=== PATIENT | male | born 1975 | race African-American/Black ===

== ENCOUNTER 2017-07-06 09:58 | Emergency (ER) | payer SELFPAY ==
[~2017-07-06] VITALS: Ht 152.4 cm; Wt 52.0 kg
[~2017-07-06 09:58] MED LIST: PRED20 PO; TRIA.1%T TOPICAL
[2017-07-06 10:05] VITALS: BP 124/70; PULSE 88; RESP 15; TEMP 98.5; O2SAT 99
[2017-07-06] MEDS ORDERED: TRIAM.1%T TOPICAL (10:34)
--- NOTE | 2017-07-06 10:35 | PD ---
HPI Chief Complaint: Skin Problem Time Seen by Provider: 10:20 Travel History International Travel<30 days: No Contact w/Intl Traveler<30days: No Traveled to known affect area: No History of Present Illness HPI 41yo M with no PMH presents to the ED with c/o rash in his bilateral arms for 4- 5 months. Denies any fever, chest pain, sob, lip or tongue swelling, n/v, abdominal pain, focal weakness or numbness, pain in the rash. Denies recent exposure to new medications, lotions, shampoos, plants. Pt states he was seen here for his before and was given a cream that helped but the rash came back. Pt was seen 09/2016 and discharged with triamcinolone cream. [facility] Social History Alcohol Use: Yes Tobacco Use: Yes (2-3 cig/day) Substance Use: Yes (marijuana, no IV drug use) Allergies-Medications (Allergen,Severity, Reaction): Coded Allergies: No Known Allergies (Unverified , 09/20/16) Reported Meds & Prescriptions Reported Meds & Active Scripts Active Triamcinolone Topical (Triamcinolone Acetonide) 0.1% Cream 1 Applic TOPICAL BID Prednisone 20 Mg Tab 40 Mg PO DAILY 4 Days Review of Systems Except as stated in HPI: all other systems reviewed are Neg Physical Exam Narrative GENERAL: 41yo M not in distress. SKIN: Bilateral skin color papules in clusters in bilateral forearms with some excoriation from scratching. No erythema, edema. There are some similar rash in the neck as well. HEAD: Atraumatic. Normocephalic. EYES: Pupils equal and round. No scleral icterus. No injection or drainage. ENT: No lip or tongue swelling. NECK: Trachea midline. No JVD. CARDIOVASCULAR: Regular rate and rhythm. No murmur appreciated. RESPIRATORY: No accessory muscle use. Clear to auscultation. Breath sounds equal bilaterally. GASTROINTESTINAL: Abdomen soft, non-tender, nondistended. MUSCULOSKELETAL: No obvious deformities. No clubbing. No cyanosis. No edema. NEUROLOGICAL: Awake and alert. No obvious cranial nerve deficits. Motor grossly within normal limits. Normal speech. PSYCHIATRIC: Appropriate mood and affect; insight and judgment normal. Data Data Last Documented VS Vital Signs Date Time Temp Pulse Resp B/P Pulse Ox O2 Delivery O2 Flow Rate FiO2 07/06/17 10:05 98.5 88 15 124/70 99 MDM Medical Decision Making Medical Screen Exam Complete: Yes Emergency Medical Condition: Yes Differential Diagnosis Eczema vs. contact dermatitis vs. psoriasis Narrative Course 41yo M with rash in bilateral arms and neck that is itchy for a few months. Similar episode last year. No systemic symptoms. Appears to be like eczema to me. Return precautions given. Diagnosis Primary Impression: Eczema Qualified Code: L30.9 - Eczema, unspecified type Patient Instructions: General Instructions Departure Forms: Tests/Procedures Additional Instructions: Please follow up with your primary care physician in 1 week. Return to the ED if symptoms worsen. Med/Other Pt SpecificInfo: Prescription(s) given Scripts Triamcinolone Topical 0.1 % Oint1 Applic TOPICAL BID 10 Days Ref 0 Prov:Charu Winchester DO 07/06/17 Disposition: 01 DISCHARGE HOME Condition: Stable Charu Winchester DO Jul 06, 2017 10:34
== END 2017-07-06 10:41 | disposition home or self-care (01) ==
LOC: NEPE 09:58
DX: L30.9 Dermatitis, unspecified (principal); Z72.0 Tobacco use
CPT/HCPCS: 99283

== ENCOUNTER 2017-08-17 07:53 | Emergency (ER) | payer SELFPAY ==
[~2017-08-17] VITALS: Ht 152.4 cm; Wt 50.0 kg
[~2017-08-17 07:53] MED LIST changes: +TRIAM.1%T TOPICAL
[2017-08-17 07:56] VITALS: BP 111/75; PULSE 72; RESP 14; TEMP 97.8; O2SAT 98
[2017-08-17] MEDS ORDERED: TRIA.1%T TOPICAL (08:17)
--- NOTE | 2017-08-17 08:17 | PD ---
HPI Chief Complaint: Skin Problem Time Seen by Provider: 08:07 Travel History International Travel<30 days: No Contact w/Intl Traveler<30days: No Traveled to known affect area: No History of Present Illness HPI 41-year-old male here for evaluation of flareup of eczema/dermatitis. He states that for the last 5-6 months he has had this on his bilateral upper extremities. He has been on triamcinolone in the past which improved his symptoms. He no longer has this medication. He denies fevers or chills. He states that the rash is pruritic. [facility] Social History Alcohol Use: Yes Tobacco Use: Yes (2-3 cig/day) Substance Use: Yes (marijuana, no IV drug use) Allergies-Medications (Allergen,Severity, Reaction): Coded Allergies: No Known Allergies (Unverified , 09/20/16) Reported Meds & Prescriptions Reported Meds & Active Scripts Active Triamcinolone Topical (Triamcinolone Acetonide) 0.1 % Oint 1 Applic TOPICAL BID 10 Days Triamcinolone Topical (Triamcinolone Acetonide) 0.1% Cream 1 Applic TOPICAL BID Prednisone 20 Mg Tab 40 Mg PO DAILY 4 Days Review of Systems Except as stated in HPI: all other systems reviewed are Neg Physical Exam Narrative GENERAL: Well-developed, well-nourished, awake, alert, no apparent distress. SKIN: Focused skin assessment warm/dry. Bilateral upper extremities with patchy /raised areas of scaly/dry skin. No warmth or erythema. No purulence. No fluctuance or induration. HEAD: Atraumatic. Normocephalic. EYES: Pupils equal and round. No scleral icterus. No injection or drainage. ENT: No nasal bleeding or discharge. No intraoral lesions. NECK: Trachea midline. No JVD. CARDIOVASCULAR: Regular rate and rhythm. Bilateral distal radial pulses are brisk and equal. RESPIRATORY: No accessory muscle use. NEUROLOGICAL: Awake and alert. No obvious cranial nerve deficits. Motor grossly within normal limits. Normal speech. PSYCHIATRIC: Appropriate mood and affect; insight and judgment normal. Data Data Last Documented VS Vital Signs Date Time Temp Pulse Resp B/P (MAP) Pulse Ox O2 Delivery O2 Flow Rate FiO2 08/17/17 07:56 97.8 72 14 111/75 (87) 98 MDM Medical Decision Making Medical Screen Exam Complete: Yes Emergency Medical Condition: Yes Differential Diagnosis Eczema, dermatitis Narrative Course Vital signs are within normal limits. This is a 41-year-old male with eczema/dermatitis to his bilateral upper extremity. Triamcinolone cream has improved his symptoms in the past. I will give him another prescription for this. He was advised to follow-up with a education officer. He was informed on when to return to the emergency department. He verbalizes understanding and agreement with plan. Diagnosis Primary Impression: Dermatitis Referrals: [facility] 3 days Additional Instructions: Follow-up with a primary care physician this week. Follow-up with a education officer this week. Return to the emergency department for worsening symptoms or any other concerns. Scripts Triamcinolone Topical (Triamcinolone Topical) 0.1% Cream 1 APPLIC TOPICAL ONCE for Inflammation, #1 TUBE 2 Refills Prov: Geovanny Moss MD 08/17/17 Disposition: 01 DISCHARGE HOME Condition: Stable Geovanny Moss MD Aug 17, 2017 08:17
== END 2017-08-17 08:47 | disposition home or self-care (01) ==
LOC: NEPE 07:53
DX: L30.9 Dermatitis, unspecified (principal); F17.210 Nicotine dependence, cigarettes, uncomplicated
CPT/HCPCS: 99283

== ENCOUNTER 2018-08-12 13:26 | Inpatient (IN) ==
[2018-08-12] MEDS ORDERED: Sod Chloride 0.9% Inj 1,000 ML IV.SIG SCH (16:00)
[2018-08-12 16:14] LABS: Baso % (Auto) 0.5 % (0.0-2.0); Eos % (Auto) 0.7 % (0.0-4.0); Hematocrit 23.3 % (39.0-51.0); Hemoglobin 7.9 gm/dL (13.0-17.0); Lymph % (Auto) 61.3 % (9.0-44.0); Mean Corpuscular HGB Conc 33.9 % (32.0-36.0); Mean Corpuscular Hemoglobin 41.7 pg (27.0-34.0); Mean Corpuscular Volume 123.1 fL (80.0-100.0); Mean Platelet Volume 9.7 fL (7.0-11.0); Mono % (Auto) 1.4 % (0.0-8.0); Neut # (Auto) 1.2 th/mm3 (1.8-7.7); Neut % (Auto) 36.1 % (16.0-70.0); Platelet Count 99 th/mm3 (150-450); Red Blood Count 1.89 mil/mm3 (4.50-5.90); Red Cell Distribution Width 19.5 % (11.6-17.2); White Blood Count 3.3 th/mm3 (4.0-11.0)
[2018-08-12 16:39] LABS: Anion Gap 11 meq/L (5-15); Blood Urea Nitrogen 22 mg/dL (7-18); Calcium 8.1 mg/dL (8.5-10.1); Carbon Dioxide 18.7 meq/L (21.0-32.0); Chloride 111 meq/L (98-107); Glomerular Filtration Rate Greater Than 89 mL/min (>89); Glucose,Random 74 mg/dL (74-106); Sodium 141 meq/L (136-145)
[2018-08-12 16:46] LABS: Potassium 3.9 meq/L (3.5-5.1)
[2018-08-12 17:23] LABS: Acanthocytes 1+
[2018-08-12 17:24] LABS: Platelet Morphology Normal (Normal)
--- NOTE | 2018-08-12 17:33 | ED ---
HPI General Chief complaint: Medical Clearance Stated complaint: Medical Time Seen by Provider: 08/12/18 14:56 Source: patient Mode of arrival: ambulatory Limitations: no limitations History of Present Illness HPI narrative: 42-year-old male presents to the emergency department with complaint of generalized weakness and feeling tired since yesterday. He is concerned that his blood counts are low due to iron deficiency anemia. He has history of blood transfusion secondary to his anemia. He says he works outside doing [employer] and he feels dehydrated, although he has been drinking Gatorade. He denies fevers, vomiting, nausea, diarrhea, abdominal pain. Denies chest pain, shortness of breath, abdominal pain, dizziness, lightheadedness. Denies any pain. Denies black or tarry stools. Symptoms are mild in severity. Has been drinking Gatorade for symptom management. History of iron deficiency anemia. No known allergies. No primary care provider. Has no other medical complaints. No other modifying factors or associated signs and symptoms. Related Data Previous Rx's Medication Instructions Recorded omeprazole 40 mg PO DAILY #30 cap 07/26/18 Allergies Allergy/AdvReac Type Severity Reaction Status Date / Time No Known Allergies Allergy Uncoded 09/20/16 10:21 Review of Systems ROS: all other systems reviewed are negative [facility] Medical History Medical History Anemia (Acute) Anemia (Acute) Patient denies medical problems (Acute) Social History Social History Substance History: Active Abuse Second Hand Smoke Exposure: Yes Smoking Status: Current every day smoker Tobacco Type: Cigarettes How Often Do You Have a Drink Containing Alcohol: Monthly or less Recent Travel in [facility] within the Last 8 Weeks: No Recent Out of Country Travel within the Last 8 Weeks: No Substance Abuse Detail Marijuana: Substance Use Status: Active Immunization History Tetanus Immunization: Unsure Hx Influenza Vaccine This Season: No Exam Narrative Exam Narrative: GENERAL: Well-nourished, well-developed thin, black male patient , in no acute distress SKIN: Warm and dry. HEAD: Atraumatic. Normocephalic. EYES: Pupils equal and round. No scleral icterus. No injection or drainage. ENT: Mucosa pink and moist. Airway patent. NECK: Trachea midline. CARDIOVASCULAR: Regular rate and rhythm. No murmur appreciated. RESPIRATORY: No accessory muscle use. Breath sounds clear and equal bilaterally. No retractions or tachypnea. GASTROINTESTINAL: Abdomen soft, non-tender, nondistended. Positive bowel sounds. No hepato-splenomegaly, or palpable masses. No guarding. RECTAL EXAM: Exam done in the presence of a nurse. No masses or tenderness, stool is brown with bright red specks of blood noted. Hemaprompt positive. No visualized external hemorrhoids. MUSCULOSKELETAL: No obvious deformities. No clubbing. No cyanosis. No edema. NEUROLOGICAL: Awake and alert. Oriented 3. No obvious cranial nerve deficits. Motor grossly within normal limits. Normal speech. PSYCHIATRIC: Appropriate mood and affect; insight and judgment normal. Course Initial Documented Vital Signs Temperature 97.7 F 08/12/18 13:27 Pulse Rate 77 08/12/18 13:27 Respiratory Rate 16 08/12/18 13:27 Blood Pressure 97/58 L 08/12/18 13:27 Pulse Oximetry 100 08/12/18 13:27 Last Documented Vital Signs Temperature 97.7 F 08/12/18 13:27 Pulse Rate 68 08/12/18 13:36 Respiratory Rate 17 08/12/18 13:36 Blood Pressure 123/52 L 08/12/18 13:36 Pulse Oximetry 100 08/12/18 13:36 Medical Decision Making MDM Narrative Medical decision making narrative: hemoglobin on July-year-old male with history of anemia complaining of weakness and fatigue. He has history of iron deficiency anemia and blood transfusion and he is concerned his blood count has dropped. He has no other medical complaints. Physical exam is unremarkable. Vital signs are stable. I will check basic labs to evaluate his hemoglobin. CBC, BMP, IV, IV fluid bolus ordered. 1736: Hemoglobin 7.9. Platelet count 99. BUN 22. Otherwise BMP unremarkable. I reviewed his medical record and his hemoglobin on July 26 was 10.7; platelet count was 147. His BUN was 22 and is consistent with current level. Patient denies any black or tarry stools. Denies any hematuria. Says these had anemia all of his life. He is on no current supplementation. Hemaprompt positive. Patient will be admitted for symptomatic anemia and GI bleed. Call placed for patient admission. 1825: I spoke with Dr. lacierda, [facility], and report given for patient admission. Medical Screen Exam Complete: Yes Emergency Medical Condition: Yes Differential Diagnosis Differential Diagnosis: Dehydration, fatigue, anemia, electrolyte imbalance Lab Data Result diagrams: 08/12/18 16:05 08/12/18 16:05 Lab Results 08/12/18 08/12/18 Range/Units 16:05 16:05 WBC 3.3 L (4.0-11.0) th/mm3 RBC 1.89 L (4.50-5.90) mil/mm3 Hgb 7.9 L (13.0-17.0) gm/dL Hct 23.3 L (39.0-51.0) % MCV 123.1 H (80.0-100.0) fL MCH 41.7 H (27.0-34.0) pg MCHC 33.9 (32.0-36.0) % RDW 19.5 H (11.6-17.2) % Plt Count 99 L D (150-450) th/mm3 MPV 9.7 (7.0-11.0) fL Prelim Diff (Auto) Slide review pending Neut % (Auto) 36.1 (16.0-70.0) % Lymph % (Auto) 61.3 H (9.0-44.0) % [place] % (Auto) 1.4 (0.0-8.0) % Eos % (Auto) 0.7 (0.0-4.0) % Baso % (Auto) 0.5 (0.0-2.0) % Neut # (Auto) 1.2 L (1.8-7.7) th/mm3 Lymph # (Auto) 2.0 (1.0-4.8) th/mm3 [place] # (Auto) 0.0 (0.0-0.9) th/mm3 Eos # (Auto) 0.0 (0.0-0.4) th/mm3 Baso # (Auto) 0.0 (0.0-0.2) th/mm3 WBC Differential . Diff Scan Auto diff confirmed Differential Comment . Platelet Estimate Low L (Normal) Platelet Morphology Normal (Normal) Acanthocytes (Spur) 1+ H (None) Sodium 141 (136-145) meq/L Potassium 3.9 (3.5-5.1) meq/L Chloride 111 H (98-107) meq/L Carbon Dioxide 18.7 L (21.0-32.0) meq/L Anion Gap 11 (5-15) meq/L BUN 22 H (7-18) mg/dL Creatinine 0.96 (0.60-1.30) mg/dL Estimated GFR Greater than 89 (>89) mL/min Random Glucose 74 (74-106) mg/dL Calcium 8.1 L (8.5-10.1) mg/dL Discharge Plan Discharge Disposition Patient Disposition: 30 Still Patient Discharge Condition Condition: Stable Discharge Details Diagnosis: Symptomatic anemia, GI bleed Physicians Team ED Provider: Mat Dennison ED Midlevel Provider: Ashley Lind Primary Care Provider: Primary Care Ruth Cavanaugh Rxs /Orders / Referrals /Forms Prescriptions: No Action omeprazole 40 mg capsule,delayed release(DR/EC) 40 mg PO DAILY Qty: 30 RF: 0 Status ED Status: With Doctor
[2018-08-12 19:25] LABS: INR 1.2 Ratio; Prothrombin Time 11.9 sec (9.8-11.6)
--- NOTE | 2018-08-12 21:09 | P.HPIM ---
History of Present Illness Service: [facility] Primary Care Physician: No Primary Care Physician Chief Complaint: Weakness History of Present Illness: 42-year-old male with a history of anemia since childhood, as a child was on B12 injections, currently on no medication presented in the ED with complaints of generalized weakness since yesterday. Patient states he does work out in the hot sun and despite drinking Gatorade he just has been feeling very weak. He does have a history of blood transfusions in the past and states he does not take any iron pills and lately has not been very compliant with his diet or taking care of himself. He does states that he has noticed some bright red blood in with his stools and on tissue when having a bowel movement, that has been going on for at least a month. No history of endoscopy or colonoscopy. Upon admission patient was found to have a hemoglobin of 7.9, patient was seen on 07/26 and hemoglobin at that time was 10.7, and May 2018 hemoglobin was 13.9. Patient also does not have any primary care provider due to insurance issues. He denies any associated chest pain, shortness of breath, fever, chills, abdominal pain, dysuria or hematuria. Inpatient Certification: I certify that the inpatient services were ordered in accordance with Medicare regulations governing the order. This includes certification that hospital inpatient services are reasonable and necessary and in the case of services not specified as inpatient-only under 42 CFR 419.22(n), that they are appropriately provided as inpatient services in accordance to with the 2-midnight benchmark under 43 CFR 412.3(e) Review of Systems All other systems reviewed negative except as stated in [facility] - History History Provided By: Patient - Medical History Medical History: Medical History (Last Reviewed 08/13/18 @ 00:10 by TEGAN Figueroa) Anemia Anemia Patient denies medical problems - Surgical History Surgical History: Surgical History (Last Reviewed 08/13/18 @ 00:10 by TEGAN Figueroa) History of major abdominal surgery - Family History Family History: Family History (Last Reviewed 08/13/18 @ 00:10 by TEGAN Figueroa) Other Unknown family medical history - Social History I have reviewed the patient's Social History: Yes - Tobacco History Second Hand Smoke Exposure: Yes Tobacco Use In Past 30 Days: Yes Smoking Status: Current every day smoker Tobacco Type: Cigarettes - Alcohol History How Often Do You Have a Drink Containing Alcohol: Monthly or less - Substance Use History Substance History: Active Abuse - Substance Use Type Marijuana Status: Active - Travel History Recent Travel in the [place] Within the Last 8 Weeks: No Recent Travel Out of the Country Within the Last 8 Weeks: No - Immunization History Tetanus Immunization: Unsure Hx Influenza Vaccine This Season: No Medications and Allergies Active Medications: Active Medications Sodium Chloride (Ns Inj) 1,000 mls @ 0 mls/hr IV.SIG BOLUS CARINA Sodium Chloride (Ns Inj) 250 mls @ 15 mls/hr IV.SIG ONCE CARINA Stop: 08/13/18 14:39 Allergies Allergy/AdvReac Type Severity Reaction Status Date / Time No Known Allergies Allergy Uncoded 09/20/16 10:21 Exam Vital signs: Vital Signs 08/12/18 13:27 08/12/18 13:36 08/12/18 19:28 Temperature 97.7 F Pulse Rate 77 68 62 Respiratory Rate 16 17 15 Blood Pressure 97/58 L 123/52 L 92/61 L Pulse Oximetry 100 100 98 Intake & Output 08/12/18 08/12/18 08/13/18 06:59 18:59 06:59 Weight 53.524 kg Narrative: GENERAL: This is a thin patient, in no apparent distress. SKIN: Warm, dry, intact, no ecchymosis or open lesions EYES: Pupils equal round and reactive, no scleral edema or drainage CARDIOVASCULAR: Regular rate and rhythm without murmurs, gallops, or rubs. RESPIRATORY: Clear to auscultation. Breath sounds equal bilaterally. No wheezes , rales, or rhonchi. GASTROINTESTINAL: Abdomen soft, non-tender, nondistended. Normal active bowel sounds MUSCULOSKELETAL: Extremities without clubbing, cyanosis, or edema. NEURO: Alert & Oriented x4 to person, place, time, situation. Moves all ext x4 Results - Labs CBC & Chem 7: 08/12/18 16:05 08/12/18 16:05 Labs: Short CBC 08/12/18 Range/Units 16:05 WBC 3.3 L (4.0-11.0) th/mm3 Hgb 7.9 L (13.0-17.0) gm/dL Hct 23.3 L (39.0-51.0) % Plt Count 99 L D (150-450) th/mm3 BMP 08/12/18 16:05 Sodium 141 Potassium 3.9 Chloride 111 H Carbon Dioxide 18.7 L BUN 22 H Creatinine 0.96 Calcium 8.1 L Caprini VTE Risk Assessment Caprini VTE Risk Assessment: No/Low Risk (score <= 1) Caprini Risk Assessment Model: Point Value = 1 Point Value = 2 Point Value = 3 Point Value = 5 Age 41-60 Minor surgery BMI > 25 kg/m2 Swollen legs Varicose veins or History of unexplained or recurrent spontaneous Oral contraceptives or hormone replacement Sepsis (< 1 month) Serious lung disease, including pneumonia (< 1 month) Abnormal pulmonary function Acute myocardial infarction Congestive heart failure (< 1 month) History of inflammatory bowel disease Medical patient at bed rest Age 61-74 Arthroscopic surgery Major open surgery (> 45 min) Laparoscopic surgery (> 45 min) Malignancy Confined to bed (> 72 hours) Immobilizing plaster cast Central venous access Age >= 75 History of VTE Family history of VTE Factor V Leiden Prothrombin [id number] Lupus anticoagulant Anticardiolipin antibodies Elevated serum homocysteine Heparin-induced thrombocytopenia Other congenital or acquired thrombophilia Stroke (< 1 month) Elective arthroplasty Hip, pelvis, or leg fracture Acute spinal cord injury (< 1 month) Prophylaxis Regimen: Total Risk Factor Score Risk Level Prophylaxis Regimen 0-1 Low Early ambulation 2 Moderate Order ONE of the following: *Sequential Compression Device (SCD) *Heparin 5000 units SQ BID 3-4 Higher Order ONE of the following medications: *Heparin 5000 units SQ TID *Enoxaparin/Lovenox 40 mg SQ daily (WT < 150 kg, CrCl > 30 mL/min) *Enoxaparin/Lovenox 30 mg SQ daily (WT < 150 kg, CrCl > 10-29 mL/min) *Enoxaparin/Lovenox 30 mg SQ BID (WT < 150 kg, CrCl > 30 mL/min) AND/OR *Sequential Compression Device (SCD) 5 or more Highest Order ONE of the following medications: *Heparin 5000 units SQ TID (Preferred with Epidurals) *Enoxaparin/Lovenox 40 mg SQ daily (WT < 150 kg, CrCl > 30 mL/min) *Enoxaparin/Lovenox 30 mg SQ daily (WT < 150 kg, CrCl > 10-29 mL/min) *Enoxaparin/Lovenox 30 mg SQ BID (WT < 150 kg, CrCl > 30 mL/min) AND *Sequential Compression Device (SCD) Assessment and Plan - Plan 42-year-old male with a history of anemia presented in the ED with complaints of generalized weakness since yesterday. Symptomatic anemia, related to possible GI bleed Hemoglobin today 7.9, on 07/26/18 10.7, and on 05/25 13.9 Hemoccult positive in the ED -Consult gastroenterology for evaluation -N.p.o. -Protonix IV -Transfuse 1 unit PRBCs -Serial H&H pancytopenia, wbc 3.3, platelets 99, with macrocytic anemia -Iron panel ordered, shows elevated iron, low TIBC, normal ferritin -checked B12, folate, Retic count, B12 < 60, folate>20 -Start B12 1000mg PO daily -blood smear pending -Consult hematology for evaluation -Check liver studies DVT prophylaxis: SCDs Discussed Condition With: Patient and RN
[2018-08-12] MEDS ORDERED: Sodium Chlor 0.9% Inj 250 ML IV.SIG SCH (22:00)
[2018-08-12 23:17] VITALS: O2SAT 100
[2018-08-12] MEDS ORDERED: Acetaminophen 325 MG Tablet PO PRN (23:56)
[2018-08-13] MEDS ORDERED: Pantoprazole Inj 40 MG Vial IV.PUSH SCH
[2018-08-13] MEDS: Sod Chloride 0.9% Inj 1,000 ML IV.CONT SCH ×3 (00:06→10:25)
[2018-08-13] MEDS ORDERED: Sodium Chloride 0.9% 2 ML Flush PRN IV.FLUSH (00:06)
[2018-08-13 00:49] LABS: Reticulocyte Percent 0.7 % (0.4-3.0)
[2018-08-13 06:46] LABS: Baso % (Auto) 0.5 % (0.0-2.0); Eos % (Auto) 1.3 % (0.0-4.0); Hematocrit 30.1 % (39.0-51.0); Hemoglobin 10.3 gm/dL (13.0-17.0); Lymph # (Auto) 2.2 th/mm3 (1.0-4.8); Lymph % (Auto) 70.5 % (9.0-44.0); Mean Corpuscular HGB Conc 34.1 % (32.0-36.0); Mean Corpuscular Hemoglobin 39.2 pg (27.0-34.0); Mean Corpuscular Volume 115.1 fL (80.0-100.0); Mean Platelet Volume 8.3 fL (7.0-11.0); Mono % (Auto) 1.5 % (0.0-8.0); Neut # (Auto) 0.8 th/mm3 (1.8-7.7); Neut % (Auto) 26.2 % (16.0-70.0); Platelet Count 63 th/mm3 (150-450); Red Blood Count 2.61 mil/mm3 (4.50-5.90); White Blood Count 3.1 th/mm3 (4.0-11.0)
[2018-08-13 06:56] LABS: Anion Gap 11 meq/L (5-15); Blood Urea Nitrogen 17 mg/dL (7-18); Calcium 8.1 mg/dL (8.5-10.1); Carbon Dioxide 18.8 meq/L (21.0-32.0); Chloride 111 meq/L (98-107); Glomerular Filtration Rate Greater Than 89 mL/min (>89); Glucose,Random 65 mg/dL (74-106); Potassium 3.5 meq/L (3.5-5.1); Sodium 141 meq/L (136-145)
[2018-08-13 08:13] LABS: Eosinophils 1 % (0-4); Lymphocytes 74 % (9-44); Monocytes 2 % (0-8)
[2018-08-13 08:14] LABS: Platelet Morphology Normal (Normal)
[2018-08-13 08:56] VITALS: RESP 16
[2018-08-13] MEDS ORDERED: Sodium Chloride 0.9% 2 ML Flush BID IV.FLUSH SCH (09:00)
[2018-08-13] MEDS ORDERED: Ferrous Sulfate 325 MG Tablet PO SCH (09:00)
--- NOTE | 2018-08-13 09:45 | MB ---
cc: Rusty Lubin MD DATE: 08/13/2018 CONSULTING PHYSICIAN: Dr. Holbrook. REASON FOR CONSULTATION: Hematology concern. The patient with pancytopenia. HISTORY OF PRESENT ILLNESS: The patient is a 42-year-old male admitted to the hospital with complaint of increased weakness. He stated he was working in the hot sun and had been having increased weakness on all day yesterday. He said he had been trying to drink Gatorade without any improvement. He presented to the emergency room and found to have hemoglobin of 7.9. He also was found to have a pancytopenia with a platelet of 99,000 and white blood cell count 3.3 and mild neutropenia. He denies any fever or chills. He denies any recent weight loss. He said he has not been eating well lately. He had a bowel resection when he was a baby. He said he was getting B12 injection when he was a kid, but he has not had followup for many years. He also has a history of iron deficiency anemia. He had transfusion 5-6 times in the past. The last time was around 2011. He denies any chest pain, dyspnea on exertion. He has no nausea or vomiting. He denies abdominal pain. He noted some blood in the tissue for the last 1 month. He denies any dysuria or hematuria. He stated he is supposed to meet a cab driver this coming Saturday morning and he is supposed to be incarcerated for 60-90 days. He states that he has to be out of the hospital to meet with the cab driver on Saturday. PAST MEDICAL HISTORY: 1. Chronic anemia since childhood. 2. Report of iron deficiency in the past. 3. Report of B12 deficiency. PAST SURGICAL HISTORY: Abdominal surgery when he was a baby. Reportedly, part of his bowel was resected. FAMILY HISTORY: His 5 siblings, all relatively healthy. No blood disorder in the family that he knows of. SOCIAL HISTORY: Smoked 3 cigarettes since age 19. He also smoked occasional marijuana. He drinks occasionally. He is now working as a housekeeper. ALLERGIES: NO KNOWN DRUG ALLERGIES. MEDICATIONS: B12, Protonix. REVIEW OF SYSTEMS: CONSTITUTIONAL: As above. EYES: Negative. ENT: Negative. CARDIOVASCULAR: No chest pressure or palpitation. RESPIRATORY: As above. GASTROINTESTINAL: As above. GENITOURINARY: Negative. MUSCULOSKELETAL: Negative. HEMATOLOGIC: As above. ENDOCRINE: Negative. DERMATOLOGY: Negative. PSYCHIATRIC: Negative. NEUROLOGIC: Negative. PHYSICAL EXAMINATION: VITAL SIGNS: Temperature 97.4, blood pressure 101/57, O2 saturation 100%. GENERAL: He is alert, oriented x 3, in no acute distress. HEENT: Atraumatic, normocephalic. Pupils are equal, round, reactive to light. Extraocular muscles are intact. No scleral icterus. Oropharynx ,dry mucosa. No lesion. No thrush. No mucositis. NECK: No thyromegaly. No palpable mass. LYMPHATICS: No palpable cervical, clavicular, axillary, or inguinal nodes. HEART: Regular S1, S2. No murmur. LUNGS: Clear to auscultation. No wheeze or rhonchi. ABDOMEN: Soft, nontender, surgical scar noted. EXTREMITIES: No cyanosis, clubbing, or edema. BACK: No palpable tenderness. SKIN: No rash. NEUROLOGIC: Nonfocal. LABORATORY DATA: I have reviewed his lab work since admission. ASSESSMENT: 1. Pancytopenia, unknown chronicity. He has had a history of anemia and required a transfusion 5-6 times since childhood. He has macrocytosis. His B12 level is very low. This appeared to be a vitamin B12 deficiency. His folic acid is normal. His iron studies are also normal. He stated that he had HIV test about 90 days ago, which was negative. He has some bowel resection when he was a baby and likely has poor absorption. We will start him on B12 injection and folic acid. Check a methylmalonic acid level. We will also check for pernicious anemia. He has mild neutropenia and was started on neutropenic precaution. He is not febrile at this time. 2. Generalized weakness due to anemia. He is getting a blood transfusion. Overall, he is feeling better. 3. History of bowel resection. RECOMMENDATIONS: 1. Start a B12 injection and folic acid. 2. Check lab work as outlined above. 3. Neutropenic precaution. Thank you, Dr. Holbrook, for asking me to see this patient. MD YOU Gallagher/madhavi , 08:47 AM , 09:00 AM CARMELLA
[2018-08-13] MEDS ORDERED: Folic Acid 1 MG Tablet PO SCH (10:00)
--- NOTE | 2018-08-13 10:46 | P.CONGI ---
History of Present Illness Consult date: 08/13/18 Consult reason: Anemia Chief complaint: Symptomatic anemia, Gi bleed History of Present Illness: This is a 42 yo M with known history of anemia, pt reports has been treated for this since childhood. He has had multiple blood transfusion but thinks he was last transfused in 2011. Also has previously been on iron supplements and B12 but has not taken either of these recently. 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 Our service has been consulted to evaluate for anemia. Pt denies previous EGD or colonoscopy. Denies nausea, vomiting, abdominal pain, unintentional weight loss. Does report some occasional BRB in his stool, states approximately once a month. Denies any straining with his stools. Denies history of constipation. Does state his hemorrhoids have been an issue lately. Denies ETOH. Does report smoking nicotine and marijuana. Denies routine NSAID use, did have Aleve yesterday for a headache. Denies taking any blood thinners. <Louisa Ponce - Last Filed: 08/13/18 12:36> Review of Systems Constitutional: Reports fatigue, Denies weight loss Gastrointestinal: Reports bright, red blood in stools, Denies abdominal pain, Denies black, tarry stools, Denies bloating, Denies constipation, Denies loose stools, Denies nausea, Denies vomiting <Louisa Ponce - Last Filed: 08/13/18 12:36> [facility] - History History Provided By: Patient - Medical History Medical History: Medical History (Last Reviewed 08/13/18 @ 00:10 by TEGAN Figueroa) Anemia Anemia Patient denies medical problems - Surgical History Surgical History: Surgical History (Last Reviewed 08/13/18 @ 00:10 by TEGAN Figueroa) History of major abdominal surgery - Family History Family History: Family History (Last Reviewed 08/13/18 @ 00:10 by TEGAN Figueroa) Other Unknown family medical history - Tobacco History Second Hand Smoke Exposure: Yes Tobacco Use In Past 30 Days: Yes Smoking Status: Current every day smoker Tobacco Type: Cigarettes - Alcohol History How Often Do You Have a Drink Containing Alcohol: Monthly or less - Substance Use History Substance History: Active Abuse - Substance Use Type Marijuana Status: Active Route Used: Inhalation Reason for Use: Feels Good - Travel History Recent Travel in the [place] Within the Last 8 Weeks: No Recent Travel Out of the Country Within the Last 8 Weeks: No - Immunization History Tetanus Immunization: Unsure Hx Influenza Vaccine This Season: No <ShaLouisa delaney - Last Filed: 08/13/18 12:36> - Medical History Medical History: Medical History (Last Reviewed 08/13/18 @ 00:10 by TEGAN Figueroa) Anemia Anemia Patient denies medical problems - Surgical History Surgical History: Surgical History (Last Reviewed 08/13/18 @ 00:10 by TEGAN Figueroa) History of major abdominal surgery - Family History Family History: Family History (Last Reviewed 08/13/18 @ 00:10 by TEGAN Figueroa) Other Unknown family medical history <Charisse Ornelas - Last Filed: 08/13/18 15:48> Medications and Allergies Active Medications: Active Medications Acetaminophen (Tylenol) 650 mg PO Q4H PRN PRN Reason: Temp > 100.4 Cyanocobalamin (Vitamin B12 Inj) 1,000 mcg IM DAILY [facility] Stop: 08/19/18 09:59 Last Admin: 08/13/18 10:17 Dose: 1,000 mcg Folic Acid (Folic Acid) 1 mg PO DAILY [facility] Last Admin: 08/13/18 10:17 Dose: 1 mg Sodium Chloride (Ns Inj) 1,000 mls @ 0 mls/hr IV.SIG BOLUS [place] Sodium Chloride (Ns Inj) 250 mls @ 15 mls/hr IV.SIG ONCE [facility] Stop: 08/13/18 14:39 Last Admin: 08/12/18 23:07 Dose: 15 mls/hr Sodium Chloride (Ns Inj) 1,000 mls @ 100 mls/hr IV.CONT .Q10H [facility] Last Admin: 08/13/18 10:25 Dose: 100 mls/hr Ondansetron HCl (Zofran Inj) 4 mg IV.PUSH Q6H PRN PRN Reason: NAUSEA OR VOMITING Pantoprazole Sodium (Protonix Inj) 40 mg IV.PUSH Q12H [facility] Last Admin: 08/13/18 01:19 Dose: 40 mg Polyethylene Glycol/Electrolytes (Colyte Liq) 4,000 ml PO ONCE ONE Stop: 08/13/18 16:01 Sodium Chloride (Ns Flush) 2 ml IV.FLUSH BID [facility] Last Admin: 08/13/18 10:25 Dose: 2 ml Sodium Chloride (Ns Flush) 2 ml IV.FLUSH PRN PRN PRN Reason: FLUSH AFTER USING IV ACCESS <Louisa Ponce - Last Filed: 08/13/18 12:36> Active Medications: Active Medications Acetaminophen (Tylenol) 650 mg PO Q4H PRN PRN Reason: Temp > 100.4 Cyanocobalamin (Vitamin B12 Inj) 1,000 mcg IM DAILY [facility] Stop: 08/19/18 09:59 Last Admin: 08/13/18 10:17 Dose: 1,000 mcg Folic Acid (Folic Acid) 1 mg PO DAILY [facility] Last Admin: 08/13/18 10:17 Dose: 1 mg Sodium Chloride (Ns Inj) 1,000 mls @ 0 mls/hr IV.SIG BOLUS [facility] Sodium Chloride (Ns Inj) 1,000 mls @ 100 mls/hr IV.CONT .Q10H [facility] Last Admin: 08/13/18 10:25 Dose: 100 mls/hr Ondansetron HCl (Zofran Inj) 4 mg IV.PUSH Q6H PRN PRN Reason: NAUSEA OR VOMITING Pantoprazole Sodium (Protonix Inj) 40 mg IV.PUSH Q12H [facility] Last Admin: 08/13/18 01:19 Dose: 40 mg Polyethylene Glycol/Electrolytes (Colyte Liq) 4,000 ml PO ONCE ONE Stop: 08/13/18 16:01 Sodium Chloride (Ns Flush) 2 ml IV.FLUSH BID [facility] Last Admin: 08/13/18 10:25 Dose: 2 ml Sodium Chloride (Ns Flush) 2 ml IV.FLUSH PRN PRN PRN Reason: FLUSH AFTER USING IV ACCESS <Charisse Ornelas - Last Filed: 08/13/18 15:48> Allergies Allergy/AdvReac Type Severity Reaction Status Date / Time No Known Allergies Allergy Uncoded 09/20/16 10:21 Exam Vital signs: Vital Signs 08/12/18 13:27 08/12/18 13:36 08/12/18 19:28 Temperature 97.7 F Pulse Rate 77 68 62 Respiratory Rate 16 17 15 Blood Pressure 97/58 L 123/52 L 92/61 L Pulse Oximetry 100 100 98 08/12/18 21:28 08/12/18 23:07 08/12/18 23:20 Temperature 97.5 F L 97.7 F 97.5 F L Pulse Rate 62 58 L 62 Respiratory Rate 18 16 17 Blood Pressure 92/53 L 104/52 L 110/60 Pulse Oximetry 96 100 100 08/13/18 02:50 08/13/18 08:00 Temperature 97.4 F L 97.8 F Pulse Rate 60 58 L Respiratory Rate 15 16 Blood Pressure 101/57 L 100/52 L Pulse Oximetry 100 100 Intake & Output 08/12/18 08/13/18 08/13/18 18:59 06:59 18:59 Intake Total 360 / 360 1000 / 1000 Balance 360 / 360 1000 / 1000 Weight 53.524 kg 53.5 kg Intake: IV 1000 / 1000 NS Inj 1,000 ML @ 100 mls/hr IV 1000 / 1000 .CONT .Q10H [facility] Rx#:[id number] Oral 360 / 360 Intake (Blood Product) Amt 0 / 0 Rbc As-3 Leukoreduced Unit 0 / 0 [id number] Other: # Voids 2 Date of Last Bowel Movement 08/12/18 # Bowel Movements 0 Weight On Admission 53.524 kg - Constitutional no acute distress - Routine HEENT Exam Head: Present: normocephalic, atraumatic - Routine Respiratory Exam Absent: accessory muscle use - Routine Abdominal Exam Present: soft, normoactive bowel sounds. Absent: tenderness, distended - Routine Skin Exam Present: dry, warm - Routine Neurological Exam Present: alert, oriented X3 <Louisa Ponce - Last Filed: 08/13/18 12:36> Vital signs: Vital Signs 08/12/18 19:28 08/12/18 21:28 08/12/18 23:07 Temperature 97.5 F L 97.7 F Pulse Rate 62 62 58 L Respiratory Rate 15 18 16 Blood Pressure 92/61 L 92/53 L 104/52 L Pulse Oximetry 98 96 100 08/12/18 23:20 08/13/18 02:50 08/13/18 08:00 Temperature 97.5 F L 97.4 F L 97.8 F Pulse Rate 62 60 58 L Respiratory Rate 17 15 16 Blood Pressure 110/60 101/57 L 100/52 L Pulse Oximetry 100 100 100 08/13/18 12:00 Temperature 98.4 F Pulse Rate 57 L Respiratory Rate 16 Blood Pressure 108/51 L Pulse Oximetry 100 Intake & Output 08/12/18 08/13/18 08/13/18 18:59 06:59 18:59 Intake Total 360 / 360 1000 / 1000 Balance 360 / 360 1000 / 1000 Weight 53.524 kg 53.5 kg Intake: IV 1000 / 1000 NS Inj 1,000 ML @ 100 mls/hr IV 1000 / 1000 .CONT .Q10H [facility] Rx#:[id number] Oral 360 / 360 Intake (Blood Product) Amt 0 / 0 Rbc As-3 Leukoreduced Unit 0 / 0 [id number] Other: # Voids 2 Date of Last Bowel Movement 08/12/18 08/12/18 # Bowel Movements 0 Weight On Admission 53.524 kg <Charisse Ornelas - Last Filed: 08/13/18 15:48> Results - Labs CBC & Chem 7: 08/13/18 04:29 08/13/18 04:29 Labs: Laboratory Results - last 24 hr 08/12/18 08/12/18 08/12/18 16:05 16:05 16:05 WBC 3.3 L RBC 1.89 L Hgb 7.9 L Hct 23.3 L MCV 123.1 H MCH 41.7 H MCHC 33.9 RDW 19.5 H Plt Count 99 L D MPV 9.7 Prelim Diff (Auto) Slide review pending Neut % (Auto) 36.1 Lymph % (Auto) 61.3 H [place] % (Auto) 1.4 Eos % (Auto) 0.7 Baso % (Auto) 0.5 Neut # (Auto) 1.2 L Lymph # (Auto) 2.0 [place] # (Auto) 0.0 Eos # (Auto) 0.0 Baso # (Auto) 0.0 WBC Differential . Diff Scan Auto diff confirmed Seg Neuts % (Manual) Lymphocytes % (Manual) Monocytes % (Manual) Eosinophils % (Manual) Abs Neuts (Manual) Differential Comment . Platelet Estimate Low L Platelet Morphology Normal Acanthocytes (Spur) 1+ H Keratocytes Smear Path Review Retic Count Absolute Retic PT INR Sodium 141 Potassium 3.9 Chloride 111 H Carbon Dioxide 18.7 L Anion Gap 11 BUN 22 H Creatinine 0.96 Estimated GFR Greater than 89 Random Glucose 74 Calcium 8.1 L Iron 201 H TIBC 231 L % Saturation 87.0 H Ferritin 217 Vitamin B12 Folate Blood Type Antibody Screen [facility] Gel Crossmatch 08/12/18 08/12/18 08/12/18 16:05 16:05 16:05 WBC RBC Hgb Hct MCV MCH MCHC RDW Plt Count MPV Prelim Diff (Auto) Neut % (Auto) Lymph % (Auto) [place] % (Auto) Eos % (Auto) Baso % (Auto) Neut # (Auto) Lymph # (Auto) [place] # (Auto) Eos # (Auto) Baso # (Auto) WBC Differential Diff Scan Seg Neuts % (Manual) Lymphocytes % (Manual) Monocytes % (Manual) Eosinophils % (Manual) Abs Neuts (Manual) Differential Comment Platelet Estimate Platelet Morphology Acanthocytes (Spur) Keratocytes Smear Path Review Retic Count 0.7 Absolute Retic 13.9 L PT INR Sodium Potassium Chloride Carbon Dioxide Anion Gap BUN Creatinine Estimated GFR Random Glucose Calcium Iron TIBC % Saturation Ferritin Vitamin B12 Less than 60 L Folate Greater than 20.0 H Blood Type Antibody Screen [facility] Gel Crossmatch 08/12/18 08/12/18 08/12/18 18:40 18:40 18:40 WBC RBC Hgb Hct MCV MCH MCHC RDW Plt Count MPV Prelim Diff (Auto) Neut % (Auto) Lymph % (Auto) [place] % (Auto) Eos % (Auto) Baso % (Auto) Neut # (Auto) Lymph # (Auto) [place] # (Auto) Eos # (Auto) Baso # (Auto) WBC Differential Diff Scan Seg Neuts % (Manual) Lymphocytes % (Manual) Monocytes % (Manual) Eosinophils % (Manual) Abs Neuts (Manual) Differential Comment Platelet Estimate Platelet Morphology Acanthocytes (Spur) Keratocytes Smear Path Review Retic Count Absolute Retic PT 11.9 H Cancelled INR 1.2 Cancelled Sodium Potassium Chloride Carbon Dioxide Anion Gap BUN Creatinine Estimated GFR Random Glucose Calcium Iron TIBC % Saturation Ferritin Vitamin B12 Folate Blood Type O Positive Antibody Screen Negative [facility] Gel Crossmatch 08/12/18 08/13/18 08/13/18 19:08 04:29 04:29 WBC 3.1 L RBC 2.61 L Hgb 10.3 L D Hct 30.1 L MCV 115.1 H D MCH 39.2 H MCHC 34.1 RDW 25.0 H D Plt Count 63 L D MPV 8.3 Prelim Diff (Auto) Slide review pending Neut % (Auto) 26.2 Lymph % (Auto) 70.5 H [place] % (Auto) 1.5 Eos % (Auto) 1.3 Baso % (Auto) 0.5 Neut # (Auto) 0.8 L Lymph # (Auto) 2.2 [place] # (Auto) 0.0 Eos # (Auto) 0.0 Baso # (Auto) 0.0 WBC Differential Manual diff final Diff Scan Seg Neuts % (Manual) 23 Lymphocytes % (Manual) 74 H Monocytes % (Manual) 2 Eosinophils % (Manual) 1 Abs Neuts (Manual) 0.7 L Differential Comment . Platelet Estimate Low L Platelet Morphology Normal Acanthocytes (Spur) Keratocytes Occ H Smear Path Review Retic Count Absolute Retic PT INR Sodium 141 Potassium 3.5 Chloride 111 H Carbon Dioxide 18.8 L Anion Gap 11 BUN 17 Creatinine 0.80 Estimated GFR Greater than 89 Random Glucose 65 L Calcium 8.1 L Iron TIBC % Saturation Ferritin Vitamin B12 Folate Blood Type Antibody Screen [facility] Gel Crossmatch See Detail 08/13/18 06:26 WBC RBC Hgb Hct MCV MCH MCHC RDW Plt Count MPV Prelim Diff (Auto) Neut % (Auto) Lymph % (Auto) [place] % (Auto) Eos % (Auto) Baso % (Auto) Neut # (Auto) Lymph # (Auto) [place] # (Auto) Eos # (Auto) Baso # (Auto) WBC Differential Diff Scan Seg Neuts % (Manual) Lymphocytes % (Manual) Monocytes % (Manual) Eosinophils % (Manual) Abs Neuts (Manual) Differential Comment Platelet Estimate Platelet Morphology Acanthocytes (Spur) Keratocytes Smear Path Review Retic Count Absolute Retic PT INR Sodium Potassium Chloride Carbon Dioxide Anion Gap BUN Creatinine Estimated GFR Random Glucose Calcium Iron TIBC % Saturation Ferritin Vitamin B12 Folate Blood Type Antibody Screen [facility] Gel Crossmatch <Louisa Ponce - Last Filed: 08/13/18 12:36> - Labs CBC & Chem 7: 08/13/18 04:29 08/13/18 04:29 Labs: Laboratory Results - last 24 hr 08/12/18 08/12/18 08/12/18 16:05 16:05 16:05 WBC 3.3 L RBC 1.89 L Hgb 7.9 L Hct 23.3 L MCV 123.1 H MCH 41.7 H MCHC 33.9 RDW 19.5 H Plt Count 99 L D MPV 9.7 Prelim Diff (Auto) Slide review pending Neut % (Auto) 36.1 Lymph % (Auto) 61.3 H [place] % (Auto) 1.4 Eos % (Auto) 0.7 Baso % (Auto) 0.5 Neut # (Auto) 1.2 L Lymph # (Auto) 2.0 [place] # (Auto) 0.0 Eos # (Auto) 0.0 Baso # (Auto) 0.0 WBC Differential . Diff Scan Auto diff confirmed Seg Neuts % (Manual) Lymphocytes % (Manual) Monocytes % (Manual) Eosinophils % (Manual) Abs Neuts (Manual) Differential Comment . Platelet Estimate Low L Platelet Morphology Normal Acanthocytes (Spur) 1+ H Keratocytes Smear Path Review Retic Count Absolute Retic PT INR Sodium 141 Potassium 3.9 Chloride 111 H Carbon Dioxide 18.7 L Anion Gap 11 BUN 22 H Creatinine 0.96 Estimated GFR Greater than 89 Random Glucose 74 Calcium 8.1 L Iron 201 H TIBC 231 L % Saturation 87.0 H Ferritin 217 Total Bilirubin Direct Bilirubin Indirect Bilirubin AST ALT Alkaline Phosphatase Total Protein Albumin Vitamin B12 Folate Blood Type Antibody Screen [facility] Gel Crossmatch 08/12/18 08/12/18 08/12/18 16:05 16:05 16:05 WBC RBC Hgb Hct MCV MCH MCHC RDW Plt Count MPV Prelim Diff (Auto) Neut % (Auto) Lymph % (Auto) [place] % (Auto) Eos % (Auto) Baso % (Auto) Neut # (Auto) Lymph # (Auto) [place] # (Auto) Eos # (Auto) Baso # (Auto) WBC Differential Diff Scan Seg Neuts % (Manual) Lymphocytes % (Manual) Monocytes % (Manual) Eosinophils % (Manual) Abs Neuts (Manual) Differential Comment Platelet Estimate Platelet Morphology Acanthocytes (Spur) Keratocytes Smear Path Review Retic Count 0.7 Absolute Retic 13.9 L PT INR Sodium Potassium Chloride Carbon Dioxide Anion Gap BUN Creatinine Estimated GFR Random Glucose Calcium Iron TIBC % Saturation Ferritin Total Bilirubin Direct Bilirubin Indirect Bilirubin AST ALT Alkaline Phosphatase Total Protein Albumin Vitamin B12 Less than 60 L Folate Greater than 20.0 H Blood Type Antibody Screen [facility] Gel Crossmatch 08/12/18 08/12/18 08/12/18 18:40 18:40 18:40 WBC RBC Hgb Hct MCV MCH MCHC RDW Plt Count MPV Prelim Diff (Auto) Neut % (Auto) Lymph % (Auto) [place] % (Auto) Eos % (Auto) Baso % (Auto) Neut # (Auto) Lymph # (Auto) [place] # (Auto) Eos # (Auto) Baso # (Auto) WBC Differential Diff Scan Seg Neuts % (Manual) Lymphocytes % (Manual) Monocytes % (Manual) Eosinophils % (Manual) Abs Neuts (Manual) Differential Comment Platelet Estimate Platelet Morphology Acanthocytes (Spur) Keratocytes Smear Path Review Retic Count Absolute Retic PT 11.9 H Cancelled INR 1.2 Cancelled Sodium Potassium Chloride Carbon Dioxide Anion Gap BUN Creatinine Estimated GFR Random Glucose Calcium Iron TIBC % Saturation Ferritin Total Bilirubin Direct Bilirubin Indirect Bilirubin AST ALT Alkaline Phosphatase Total Protein Albumin Vitamin B12 Folate Blood Type O Positive Antibody Screen Negative [facility] Gel Crossmatch 08/12/18 08/13/18 08/13/18 19:08 04:29 04:29 WBC 3.1 L RBC 2.61 L Hgb 10.3 L D Hct 30.1 L MCV 115.1 H D MCH 39.2 H MCHC 34.1 RDW 25.0 H D Plt Count 63 L D MPV 8.3 Prelim Diff (Auto) Slide review pending Neut % (Auto) 26.2 Lymph % (Auto) 70.5 H [place] % (Auto) 1.5 Eos % (Auto) 1.3 Baso % (Auto) 0.5 Neut # (Auto) 0.8 L Lymph # (Auto) 2.2 [place] # (Auto) 0.0 Eos # (Auto) 0.0 Baso # (Auto) 0.0 WBC Differential Manual diff final Diff Scan Seg Neuts % (Manual) 23 Lymphocytes % (Manual) 74 H Monocytes % (Manual) 2 Eosinophils % (Manual) 1 Abs Neuts (Manual) 0.7 L Differential Comment . Platelet Estimate Low L Platelet Morphology Normal Acanthocytes (Spur) Keratocytes Occ H Smear Path Review Retic Count Absolute Retic PT INR Sodium 141 Potassium 3.5 Chloride 111 H Carbon Dioxide 18.8 L Anion Gap 11 BUN 17 Creatinine 0.80 Estimated GFR Greater than 89 Random Glucose 65 L Calcium 8.1 L Iron TIBC % Saturation Ferritin Total Bilirubin Direct Bilirubin Indirect Bilirubin AST ALT Alkaline Phosphatase Total Protein Albumin Vitamin B12 Folate Blood Type Antibody Screen [facility] Gel Crossmatch See Detail 08/13/18 08/13/18 04:29 06:26 WBC RBC Hgb Hct MCV MCH MCHC RDW Plt Count MPV Prelim Diff (Auto) Neut % (Auto) Lymph % (Auto) [place] % (Auto) Eos % (Auto) Baso % (Auto) Neut # (Auto) Lymph # (Auto) [place] # (Auto) Eos # (Auto) Baso # (Auto) WBC Differential Diff Scan Seg Neuts % (Manual) Lymphocytes % (Manual) Monocytes % (Manual) Eosinophils % (Manual) Abs Neuts (Manual) Differential Comment Platelet Estimate Platelet Morphology Acanthocytes (Spur) Keratocytes Smear Path Review Retic Count Absolute Retic PT INR Sodium Potassium Chloride Carbon Dioxide Anion Gap BUN Creatinine Estimated GFR Random Glucose Calcium Iron TIBC % Saturation Ferritin Total Bilirubin 1.1 H Direct Bilirubin 0.3 H Indirect Bilirubin 0.8 AST 40 H ALT 34 Alkaline Phosphatase 61 Total Protein 6.6 Albumin 3.5 Vitamin B12 Folate Blood Type Antibody Screen [facility] Gel Crossmatch <Charisse Ornelas - Last Filed: 08/13/18 15:48> Assessment and Plan - Plan Assessment: - Anemia- macrocytic, hyperchromic Known history of anemia, states since childhood, has had multiple blood transfusion but none since 2012. Has previously been on iron and B12 supplements but denies taking these in multiple years. Denies previous EGD or colonoscopy. Denies ETOH. Smokes cigarettes and marijuana. Denies NSAID use, did take Aleve yesterday for a headache. Does not take any blood thinners. Denies nausea, vomiting, abdominal pain, weight loss. Does report occasional BRB in his stool. Denies constipation, diarrhea straining with BMs. Does state his hemorrhoids have been causing him issues lately. Hematology following and has ordered work up for anemia as well. - Thrombocytopenia- unclear etiology- platelets 63 Of note, pt reports previous abdominal surgeries but unsure of details. ? absorption issues causing anemia. Plan: EGD/colonoscopy tomorrow Obtain consent Clear liquids today Golytely prep NPO after MN Monitor H/H Monitor platelets Hematology following Obtain records from [facility] Further recommendations to follow Pt has been seen and examined by myself and Dr. Ornelas and this note is written on his behalf <Louisa Ponce - Last Filed: 08/13/18 12:36> - Plan Seen and examined by [facility], Signed out AMA prior to being seen by me. <Charisse Ornelas - Last Filed: 08/13/18 15:48>
[2018-08-13 12:01] VITALS: BP 108/51; PULSE 57; TEMP 98.4
--- NOTE | 2018-08-13 12:37 | P.PNIM ---
Subjective Interval history: 42-year-old male with a history of anemia since childhood, as a child was on B12 injections, currently on no medication presented in the ED with complaints of generalized weakness since yesterday. Patient states he does work out in the hot sun and despite drinking Gatorade he just has been feeling very weak. He does have a history of blood transfusions in the past and states he does not take any iron pills and lately has not been very compliant with his diet or taking care of himself. He does states that he has noticed some bright red blood in with his stools and on tissue when having a bowel movement, that has been going on for at least a month. No history of endoscopy or colonoscopy. Upon admission patient was found to have a hemoglobin of 7.9, patient was seen on 07/26 and hemoglobin at that time was 10.7, and May 2018 hemoglobin was 13.9. Patient also does not have any primary care provider due to insurance issues. He denies any associated chest pain, shortness of breath, fever, chills, abdominal pain, dysuria or hematuria. 08-13 TO HAVE COLONOSCOPY TOMORROW DOES NOT WANT EGD- CONCERNED ABOUT HIS HX OF SURGERIES AN INFANT AM LABS NEEDS B12 DW RN AND PT AND GI AND CM Physical Exam Vital signs: Vital Signs 08/12/18 13:27 08/12/18 13:36 08/12/18 19:28 Temperature 97.7 F Pulse Rate 77 68 62 Respiratory Rate 16 17 15 Blood Pressure 97/58 L 123/52 L 92/61 L Pulse Oximetry 100 100 98 08/12/18 21:28 08/12/18 23:07 08/12/18 23:20 Temperature 97.5 F L 97.7 F 97.5 F L Pulse Rate 62 58 L 62 Respiratory Rate 18 16 17 Blood Pressure 92/53 L 104/52 L 110/60 Pulse Oximetry 96 100 100 08/13/18 02:50 08/13/18 08:00 08/13/18 12:00 Temperature 97.4 F L 97.8 F 98.4 F Pulse Rate 60 58 L 57 L Respiratory Rate 15 16 16 Blood Pressure 101/57 L 100/52 L 108/51 L Pulse Oximetry 100 100 100 Intake & Output 08/12/18 08/13/18 08/13/18 18:59 06:59 18:59 Intake Total 360 / 360 1000 / 1000 Balance 360 / 360 1000 / 1000 Weight 53.524 kg 53.5 kg Intake: IV 1000 / 1000 NS Inj 1,000 ML @ 100 mls/hr IV 1000 / 1000 .CONT .Q10H [facility] Rx#:[id number] Oral 360 / 360 Intake (Blood Product) Amt 0 / 0 Rbc As-3 Leukoreduced Unit 0 / 0 [id number] Other: # Voids 2 Date of Last Bowel Movement 08/12/18 08/12/18 # Bowel Movements 0 Weight On Admission 53.524 kg Narrative: GENERAL: This is a thin patient, in no apparent distress. SKIN: Warm, dry, intact, no ecchymosis or open lesions EYES: Pupils equal round and reactive, no scleral edema or drainage CARDIOVASCULAR: Regular rate and rhythm without murmurs, gallops, or rubs. RESPIRATORY: Clear to auscultation. Breath sounds equal bilaterally. No wheezes , rales, or rhonchi. GASTROINTESTINAL: Abdomen soft, non-tender, nondistended. Normal active bowel sounds MUSCULOSKELETAL: Extremities without clubbing, cyanosis, or edema. NEURO: Alert & Oriented x4 to person, place, time, situation. Moves all ext x4 Results - Labs CBC & Chem 7: 08/13/18 04:29 08/13/18 04:29 Laboratory Results - last 24 hr 08/12/18 08/12/18 08/12/18 16:05 16:05 16:05 WBC 3.3 L RBC 1.89 L Hgb 7.9 L Hct 23.3 L MCV 123.1 H MCH 41.7 H MCHC 33.9 RDW 19.5 H Plt Count 99 L D MPV 9.7 Prelim Diff (Auto) Slide review pending Neut % (Auto) 36.1 Lymph % (Auto) 61.3 H Rice % (Auto) 1.4 Eos % (Auto) 0.7 Baso % (Auto) 0.5 Neut # (Auto) 1.2 L Lymph # (Auto) 2.0 Rice # (Auto) 0.0 Eos # (Auto) 0.0 Baso # (Auto) 0.0 WBC Differential . Diff Scan Auto diff confirmed Seg Neuts % (Manual) Lymphocytes % (Manual) Monocytes % (Manual) Eosinophils % (Manual) Abs Neuts (Manual) Differential Comment . Platelet Estimate Low L Platelet Morphology Normal Acanthocytes (Spur) 1+ H Keratocytes Smear Path Review Retic Count Absolute Retic PT INR Sodium 141 Potassium 3.9 Chloride 111 H Carbon Dioxide 18.7 L Anion Gap 11 BUN 22 H Creatinine 0.96 Estimated GFR Greater than 89 Random Glucose 74 Calcium 8.1 L Iron 201 H TIBC 231 L % Saturation 87.0 H Ferritin 217 Vitamin B12 Folate Blood Type Antibody Screen MTS Gel Crossmatch 08/12/18 08/12/18 08/12/18 16:05 16:05 16:05 WBC RBC Hgb Hct MCV MCH MCHC RDW Plt Count MPV Prelim Diff (Auto) Neut % (Auto) Lymph % (Auto) Rice % (Auto) Eos % (Auto) Baso % (Auto) Neut # (Auto) Lymph # (Auto) Rice # (Auto) Eos # (Auto) Baso # (Auto) WBC Differential Diff Scan Seg Neuts % (Manual) Lymphocytes % (Manual) Monocytes % (Manual) Eosinophils % (Manual) Abs Neuts (Manual) Differential Comment Platelet Estimate Platelet Morphology Acanthocytes (Spur) Keratocytes Smear Path Review Retic Count 0.7 Absolute Retic 13.9 L PT INR Sodium Potassium Chloride Carbon Dioxide Anion Gap BUN Creatinine Estimated GFR Random Glucose Calcium Iron TIBC % Saturation Ferritin Vitamin B12 Less than 60 L Folate Greater than 20.0 H Blood Type Antibody Screen MTS Gel Crossmatch 08/12/18 08/12/18 08/12/18 18:40 18:40 18:40 WBC RBC Hgb Hct MCV MCH MCHC RDW Plt Count MPV Prelim Diff (Auto) Neut % (Auto) Lymph % (Auto) Rice % (Auto) Eos % (Auto) Baso % (Auto) Neut # (Auto) Lymph # (Auto) Rice # (Auto) Eos # (Auto) Baso # (Auto) WBC Differential Diff Scan Seg Neuts % (Manual) Lymphocytes % (Manual) Monocytes % (Manual) Eosinophils % (Manual) Abs Neuts (Manual) Differential Comment Platelet Estimate Platelet Morphology Acanthocytes (Spur) Keratocytes Smear Path Review Retic Count Absolute Retic PT 11.9 H Cancelled INR 1.2 Cancelled Sodium Potassium Chloride Carbon Dioxide Anion Gap BUN Creatinine Estimated GFR Random Glucose Calcium Iron TIBC % Saturation Ferritin Vitamin B12 Folate Blood Type O Positive Antibody Screen Negative MTS Gel Crossmatch 08/12/18 08/13/18 08/13/18 19:08 04:29 04:29 WBC 3.1 L RBC 2.61 L Hgb 10.3 L D Hct 30.1 L MCV 115.1 H D MCH 39.2 H MCHC 34.1 RDW 25.0 H D Plt Count 63 L D MPV 8.3 Prelim Diff (Auto) Slide review pending Neut % (Auto) 26.2 Lymph % (Auto) 70.5 H Rice % (Auto) 1.5 Eos % (Auto) 1.3 Baso % (Auto) 0.5 Neut # (Auto) 0.8 L Lymph # (Auto) 2.2 Rice # (Auto) 0.0 Eos # (Auto) 0.0 Baso # (Auto) 0.0 WBC Differential Manual diff final Diff Scan Seg Neuts % (Manual) 23 Lymphocytes % (Manual) 74 H Monocytes % (Manual) 2 Eosinophils % (Manual) 1 Abs Neuts (Manual) 0.7 L Differential Comment . Platelet Estimate Low L Platelet Morphology Normal Acanthocytes (Spur) Keratocytes Occ H Smear Path Review Retic Count Absolute Retic PT INR Sodium 141 Potassium 3.5 Chloride 111 H Carbon Dioxide 18.8 L Anion Gap 11 BUN 17 Creatinine 0.80 Estimated GFR Greater than 89 Random Glucose 65 L Calcium 8.1 L Iron TIBC % Saturation Ferritin Vitamin B12 Folate Blood Type Antibody Screen MTS Gel Crossmatch See Detail 08/13/18 06:26 WBC RBC Hgb Hct MCV MCH MCHC RDW Plt Count MPV Prelim Diff (Auto) Neut % (Auto) Lymph % (Auto) Rice % (Auto) Eos % (Auto) Baso % (Auto) Neut # (Auto) Lymph # (Auto) Rice # (Auto) Eos # (Auto) Baso # (Auto) WBC Differential Diff Scan Seg Neuts % (Manual) Lymphocytes % (Manual) Monocytes % (Manual) Eosinophils % (Manual) Abs Neuts (Manual) Differential Comment Platelet Estimate Platelet Morphology Acanthocytes (Spur) Keratocytes Smear Path Review Retic Count Absolute Retic PT INR Sodium Potassium Chloride Carbon Dioxide Anion Gap BUN Creatinine Estimated GFR Random Glucose Calcium Iron TIBC % Saturation Ferritin Vitamin B12 Folate Blood Type Antibody Screen MTS Gel Crossmatch Assessment and Plan - Plan 42-year-old male with a history of anemia presented in the ED with complaints of generalized weakness since yesterday. Symptomatic anemia, related to possible GI bleed Hemoglobin today 7.9, on 07/26/18 10.7, and on 05/25 13.9 Hemoccult positive in the ED -Consult gastroenterology for evaluation -N.p.o. -Protonix IV -Transfuse 1 unit PRBCs -Serial H&H TO HAVE COLONOSCOPY TOMORROW 9 pancytopenia, wbc 3.3, platelets 99, with macrocytic anemia -Iron panel ordered, shows elevated iron, low TIBC, normal ferritin -checked B12, folate, Retic count, B12 < 60, folate>20 -Start B12 1000mg IM DAILY AND FOLIC ACID -blood smear pending -Consult hematology for evaluation -Check liver studies B12 DW RN AND PATIENT AND CM DVT prophylaxis: SCDs Code Status: FULL CODE Discussed Condition With: RN AND PT AND CM Discharge Planning: PENDING GI CLEARANCE
[2018-08-13 13:15] LABS: Albumin 3.5 g/dL (3.4-5.0)
[2018-08-13 13:17] LABS: Total Protein 6.6 g/dL (6.4-8.2)
--- NOTE | 2018-08-13 13:24 | P.AMA ---
AMA Note - AMA Note Recommended Treatment Course: 42-year-old male with a history of anemia since childhood, as a child was on B12 injections, currently on no medication presented in the ED with complaints of generalized weakness since yesterday. Patient states he does work out in the hot sun and despite drinking Gatorade he just has been feeling very weak. He does have a history of blood transfusions in the past and states he does not take any iron pills and lately has not been very compliant with his diet or taking care of himself. He does states that he has noticed some bright red blood in with his stools and on tissue when having a bowel movement, that has been going on for at least a month. No history of endoscopy or colonoscopy. Upon admission patient was found to have a hemoglobin of 7.9, patient was seen on 07/26 and hemoglobin at that time was 10.7, and May 2018 hemoglobin was 13.9. Patient also does not have any primary care provider due to insurance issues. He denies any associated chest pain, shortness of breath, fever, chills, abdominal pain, dysuria or hematuria. 08-13 TO HAVE COLONOSCOPY TOMORROW DOES NOT WANT EGD- CONCERNED ABOUT HIS HX OF SURGERIES AN AM LABS NEEDS B12 DW RN AND PT AND GI AND CM WAS TO HAVE COLONOSCOPY TOMORROW WAS TO GET B12 DECIDED TO LEAVE AGAINST MEDICAL ADVICE AMA Statement: Patient Jemal Calhoun has decided to leave the hospital against medical advice. This patient has the capacity to refuse care and understands the risks of leaving, including permanent disability and/or , and has had an opportunity to ask questions about his/her condition. The patient has been informed that he/she may return for care at any time, and follow up has been arranged/advised. - AMA Note Discharge Disposition: Against Medical Advice Patient Condition on Discharge: Stable
--- NOTE | 2018-08-13 13:26 | P.DS ---
Date of admission: 08/12/18 18:31 Primary care physician: No Primary Care Physician Attending physician on discharge: Graeme Condon Anticipated date of discharge: 08/13/18 Brief History from admission: 42-year-old male with a history of anemia since childhood, as a child was on B12 injections, currently on no medication presented in the ED with complaints of generalized weakness since yesterday. Patient states he does work out in the hot sun and despite drinking Gatorade he just has been feeling very weak. He does have a history of blood transfusions in the past and states he does not take any iron pills and lately has not been very compliant with his diet or taking care of himself. He does states that he has noticed some bright red blood in with his stools and on tissue when having a bowel movement, that has been going on for at least a month. No history of endoscopy or colonoscopy. Upon admission patient was found to have a hemoglobin of 7.9, patient was seen on 07/26 and hemoglobin at that time was 10.7, and May 2018 hemoglobin was 13.9. Patient also does not have any primary care provider due to insurance issues. He denies any associated chest pain, shortness of breath, fever, chills, abdominal pain, dysuria or hematuria. Patient update on day of discharge: 42-year-old male with a history of anemia since childhood, as a child was on B12 injections, currently on no medication presented in the ED with complaints of generalized weakness since yesterday. Patient states he does work out in the hot sun and despite drinking Gatorade he just has been feeling very weak. He does have a history of blood transfusions in the past and states he does not take any iron pills and lately has not been very compliant with his diet or taking care of himself. He does states that he has noticed some bright red blood in with his stools and on tissue when having a bowel movement, that has been going on for at least a month. No history of endoscopy or colonoscopy. Upon admission patient was found to have a hemoglobin of 7.9, patient was seen on 07/26 and hemoglobin at that time was 10.7, and May 2018 hemoglobin was 13.9. Patient also does not have any primary care provider due to insurance issues. He denies any associated chest pain, shortness of breath, fever, chills, abdominal pain, dysuria or hematuria. 9-26 TO HAVE COLONOSCOPY TOMORROW DOES NOT WANT EGD- CONCERNED ABOUT HIS HX OF SURGERIES AN AM LABS NEEDS B12 STEVE RN AND PT AND GI AND CM WAS TO HAVE COLONOSCOPY TOMORROW WAS TO GET B12 DECIDED TO LEAVE AGAINST MEDICAL ADVICE DS: Diagnosis - Discharge Diagnosis (1) B12 deficiency anemia Status: Chronic (2) GI bleed Status: Acute (3) Symptomatic anemia Status: Acute DS: Summary Hospital Course: 42-year-old male with a history of anemia since childhood, as a child was on B12 injections, currently on no medication presented in the ED with complaints of generalized weakness since yesterday. Patient states he does work out in the hot sun and despite drinking Gatorade he just has been feeling very weak. He does have a history of blood transfusions in the past and states he does not take any iron pills and lately has not been very compliant with his diet or taking care of himself. He does states that he has noticed some bright red blood in with his stools and on tissue when having a bowel movement, that has been going on for at least a month. No history of endoscopy or colonoscopy. Upon admission patient was found to have a hemoglobin of 7.9, patient was seen on 07/26 and hemoglobin at that time was 10.7, and May 2018 hemoglobin was 13.9. Patient also does not have any primary care provider due to insurance issues. He denies any associated chest pain, shortness of breath, fever, chills, abdominal pain, dysuria or hematuria. 08-13 TO HAVE COLONOSCOPY TOMORROW DOES NOT WANT EGD- CONCERNED ABOUT HIS HX OF SURGERIES AN INFANT AM LABS NEEDS B12 STEVE RN AND PT AND GI AND CM WAS TO HAVE COLONOSCOPY TOMORROW WAS TO GET B12 DECIDED TO LEAVE AGAINST MEDICAL ADVICE - Time Spent with Patient Total time spent providing and/or coordinating discharge services: Greater than 30 minutes - Quality: VTE Deep Vein Thrombosis/Pulmonary Embolism Present on Admission: No Exam Vital signs: Vital Signs 08/12/18 13:27 08/12/18 13:36 08/12/18 19:28 Temperature 97.7 F Pulse Rate 77 68 62 Respiratory Rate 16 17 15 Blood Pressure 97/58 L 123/52 L 92/61 L Pulse Oximetry 100 100 98 08/12/18 21:28 08/12/18 23:07 08/12/18 23:20 Temperature 97.5 F L 97.7 F 97.5 F L Pulse Rate 62 58 L 62 Respiratory Rate 18 16 17 Blood Pressure 92/53 L 104/52 L 110/60 Pulse Oximetry 96 100 100 08/13/18 02:50 08/13/18 08:00 08/13/18 12:00 Temperature 97.4 F L 97.8 F 98.4 F Pulse Rate 60 58 L 57 L Respiratory Rate 15 16 16 Blood Pressure 101/57 L 100/52 L 108/51 L Pulse Oximetry 100 100 100 Intake & Output 08/12/18 08/13/18 08/13/18 18:59 06:59 18:59 Intake Total 360 / 360 1000 / 1000 Balance 360 / 360 1000 / 1000 Weight 53.524 kg 53.5 kg Intake: IV 1000 / 1000 NS Inj 1,000 ML @ 100 mls/hr IV 1000 / 1000 .CONT .Q10H [facility] Rx#:[id number] Oral 360 / 360 Intake (Blood Product) Amt 0 / 0 Rbc As-3 Leukoreduced Unit 0 / 0 [id number] Other: # Voids 2 Date of Last Bowel Movement 08/12/18 08/12/18 # Bowel Movements 0 Weight On Admission 53.524 kg Narrative: GENERAL: This is a thin patient, in no apparent distress. SKIN: Warm, dry, intact, no ecchymosis or open lesions EYES: Pupils equal round and reactive, no scleral edema or drainage CARDIOVASCULAR: Regular rate and rhythm without murmurs, gallops, or rubs. RESPIRATORY: Clear to auscultation. Breath sounds equal bilaterally. No wheezes , rales, or rhonchi. GASTROINTESTINAL: Abdomen soft, non-tender, nondistended. Normal active bowel sounds MUSCULOSKELETAL: Extremities without clubbing, cyanosis, or edema. NEURO: Alert & Oriented x4 to person, place, time, situation. Moves all ext x4 Results Procedures completed during hospitalization: NONE Completed studies during hospitalization: Laboratory Results WBC 3.1 th/mm3 (4.0-11.0) L 08/13/18 04:29 RBC 2.61 mil/mm3 (4.50-5.90) L 08/13/18 04:29 Hgb 10.3 gm/dL (13.0-17.0) L D 08/13/18 04:29 Hct 30.1 % (39.0-51.0) L 08/13/18 04:29 MCV 115.1 fL (80.0-100.0) H D 08/13/18 04:29 MCH 39.2 pg (27.0-34.0) H 08/13/18 04:29 MCHC 34.1 % (32.0-36.0) 08/13/18 04:29 RDW 25.0 % (11.6-17.2) H D 08/13/18 04:29 Plt Count 63 th/mm3 (150-450) L D 08/13/18 04:29 MPV 8.3 fL (7.0-11.0) 08/13/18 04:29 Prelim Diff (Auto) Slide review pending 08/13/18 04:29 Neut % (Auto) 26.2 % (16.0-70.0) 08/13/18 04:29 Lymph % (Auto) 70.5 % (9.0-44.0) H 08/13/18 04:29 [place] % (Auto) 1.5 % (0.0-8.0) 08/13/18 04:29 Eos % (Auto) 1.3 % (0.0-4.0) 08/13/18 04:29 Baso % (Auto) 0.5 % (0.0-2.0) 08/13/18 04:29 Neut # (Auto) 0.8 th/mm3 (1.8-7.7) L 08/13/18 04:29 Lymph # (Auto) 2.2 th/mm3 (1.0-4.8) 08/13/18 04:29 [place] # (Auto) 0.0 th/mm3 (0.0-0.9) 08/13/18 04:29 Eos # (Auto) 0.0 th/mm3 (0.0-0.4) 08/13/18 04:29 Baso # (Auto) 0.0 th/mm3 (0.0-0.2) 08/13/18 04:29 WBC Differential Manual diff final 08/13/18 04:29 Diff Scan Auto diff confirmed 08/12/18 16:05 Seg Neuts % (Manual) 23 % (16-70) 08/13/18 04:29 Lymphocytes % (Manual) 74 % (9-44) H 08/13/18 04:29 Monocytes % (Manual) 2 % (0-8) 08/13/18 04:29 Eosinophils % (Manual) 1 % (0-4) 08/13/18 04:29 Abs Neuts (Manual) 0.7 th/mm3 (1.8-7.7) L 08/13/18 04:29 Differential Comment . 08/13/18 04:29 Platelet Estimate Low (Normal) L 08/13/18 04:29 Platelet Morphology Normal (Normal) 08/13/18 04:29 Acanthocytes (Spur) 1+ (None) H 08/12/18 16:05 Keratocytes Occ (None) H 08/13/18 04:29 Smear Path Review 08/13/18 06:26 Retic Count 0.7 % (0.4-3.0) 08/12/18 16:05 Absolute Retic 13.9 mil/L (20.0-150.0) L 08/12/18 16:05 PT 11.9 sec (9.8-11.6) H 08/12/18 18:40 INR 1.2 Ratio 08/12/18 18:40 Sodium 141 meq/L (136-145) 08/13/18 04:29 Potassium 3.5 meq/L (3.5-5.1) 08/13/18 04:29 Chloride 111 meq/L (98-107) H 08/13/18 04:29 Carbon Dioxide 18.8 meq/L (21.0-32.0) L 08/13/18 04:29 Anion Gap 11 meq/L (5-15) 08/13/18 04:29 BUN 17 mg/dL (7-18) 08/13/18 04:29 Creatinine 0.80 mg/dL (0.60-1.30) 08/13/18 04:29 Estimated GFR Greater than 89 mL/min (>89) 08/13/18 04:29 Random Glucose 65 mg/dL (74-106) L 08/13/18 04:29 Calcium 8.1 mg/dL (8.5-10.1) L 08/13/18 04:29 Iron 201 mcg/dL (65-175) H 08/12/18 16:05 TIBC 231 mcg/dL (250-450) L 08/12/18 16:05 % Saturation 87.0 % (20-50) H 08/12/18 16:05 Ferritin 217 ng/mL (26-388) 08/12/18 16:05 Total Bilirubin 1.1 mg/dL (0.2-1.0) H 08/13/18 04:29 Direct Bilirubin 0.3 mg/dL (0.0-0.2) H 08/13/18 04:29 Indirect Bilirubin 0.8 mg/dL (0.0-0.8) 08/13/18 04:29 AST 40 U/L (15-37) H 08/13/18 04:29 ALT 34 U/L (12-78) 08/13/18 04:29 Alkaline Phosphatase 61 U/L (45-117) 08/13/18 04:29 Total Protein 6.6 g/dL (6.4-8.2) 08/13/18 04:29 Albumin 3.5 g/dL (3.4-5.0) 08/13/18 04:29 Vitamin B12 Less than 60 pg/mL (193-986) L 08/12/18 16:05 Folate Greater than 20.0 ng/mL (3.1-17.5) H 08/12/18 16:05 Blood Type O Positive 08/12/18 18:40 Antibody Screen Negative 08/12/18 18:40 MTS Gel Crossmatch See Detail 08/12/18 19:08 Labs on day of discharge: Labs from last 24 hours 08/13/18 08/13/18 08/13/18 10:20 06:26 04:29 WBC RBC Hgb Hct MCV MCH MCHC RDW Plt Count MPV Prelim Diff (Auto) Neut % (Auto) Lymph % (Auto) [place] % (Auto) Eos % (Auto) Baso % (Auto) Neut # (Auto) Lymph # (Auto) [place] # (Auto) Eos # (Auto) Baso # (Auto) WBC Differential Diff Scan Seg Neuts % (Manual) Lymphocytes % (Manual) Monocytes % (Manual) Eosinophils % (Manual) Abs Neuts (Manual) Differential Comment Platelet Estimate Platelet Morphology Acanthocytes (Spur) Keratocytes Smear Path Review Retic Count Absolute Retic PT INR Sodium Potassium Chloride Carbon Dioxide Anion Gap BUN Creatinine Estimated GFR Random Glucose Calcium Iron TIBC % Saturation Ferritin Total Bilirubin 1.1 H Direct Bilirubin 0.3 H Indirect Bilirubin 0.8 AST 40 H ALT 34 Alkaline Phosphatase 61 Total Protein 6.6 Albumin 3.5 Vitamin B12 Methylmalonic Acid Pending Folate Parietal Cell IgG Ab Pending Intrins Factor Block Ab Pending Blood Type Antibody Screen MTS Gel Crossmatch 08/13/18 08/13/18 08/12/18 04:29 04:29 19:08 WBC 3.1 L RBC 2.61 L Hgb 10.3 L D Hct 30.1 L MCV 115.1 H D MCH 39.2 H MCHC 34.1 RDW 25.0 H D Plt Count 63 L D MPV 8.3 Prelim Diff (Auto) Slide review pending Neut % (Auto) 26.2 Lymph % (Auto) 70.5 H [place] % (Auto) 1.5 Eos % (Auto) 1.3 Baso % (Auto) 0.5 Neut # (Auto) 0.8 L Lymph # (Auto) 2.2 [place] # (Auto) 0.0 Eos # (Auto) 0.0 Baso # (Auto) 0.0 WBC Differential Manual diff final Diff Scan Seg Neuts % (Manual) 23 Lymphocytes % (Manual) 74 H Monocytes % (Manual) 2 Eosinophils % (Manual) 1 Abs Neuts (Manual) 0.7 L Differential Comment . Platelet Estimate Low L Platelet Morphology Normal Acanthocytes (Spur) Keratocytes Occ H Smear Path Review Retic Count Absolute Retic PT INR Sodium 141 Potassium 3.5 Chloride 111 H Carbon Dioxide 18.8 L Anion Gap 11 BUN 17 Creatinine 0.80 Estimated GFR Greater than 89 Random Glucose 65 L Calcium 8.1 L Iron TIBC % Saturation Ferritin Total Bilirubin Direct Bilirubin Indirect Bilirubin AST ALT Alkaline Phosphatase Total Protein Albumin Vitamin B12 Methylmalonic Acid Folate Parietal Cell IgG Ab Intrins Factor Block Ab Blood Type Antibody Screen MTS Gel Crossmatch See Detail 08/12/18 08/12/18 08/12/18 18:40 18:40 18:40 WBC RBC Hgb Hct MCV MCH MCHC RDW Plt Count MPV Prelim Diff (Auto) Neut % (Auto) Lymph % (Auto) [place] % (Auto) Eos % (Auto) Baso % (Auto) Neut # (Auto) Lymph # (Auto) [place] # (Auto) Eos # (Auto) Baso # (Auto) WBC Differential Diff Scan Seg Neuts % (Manual) Lymphocytes % (Manual) Monocytes % (Manual) Eosinophils % (Manual) Abs Neuts (Manual) Differential Comment Platelet Estimate Platelet Morphology Acanthocytes (Spur) Keratocytes Smear Path Review Retic Count Absolute Retic PT Cancelled 11.9 H INR Cancelled 1.2 Sodium Potassium Chloride Carbon Dioxide Anion Gap BUN Creatinine Estimated GFR Random Glucose Calcium Iron TIBC % Saturation Ferritin Total Bilirubin Direct Bilirubin Indirect Bilirubin AST ALT Alkaline Phosphatase Total Protein Albumin Vitamin B12 Methylmalonic Acid Folate Parietal Cell IgG Ab Intrins Factor Block Ab Blood Type O Positive Antibody Screen Negative MTS Gel Crossmatch 08/12/18 08/12/18 08/12/18 16:05 16:05 16:05 WBC RBC Hgb Hct MCV MCH MCHC RDW Plt Count MPV Prelim Diff (Auto) Neut % (Auto) Lymph % (Auto) [place] % (Auto) Eos % (Auto) Baso % (Auto) Neut # (Auto) Lymph # (Auto) [place] # (Auto) Eos # (Auto) Baso # (Auto) WBC Differential Diff Scan Seg Neuts % (Manual) Lymphocytes % (Manual) Monocytes % (Manual) Eosinophils % (Manual) Abs Neuts (Manual) Differential Comment Platelet Estimate Platelet Morphology Acanthocytes (Spur) Keratocytes Smear Path Review Retic Count 0.7 Absolute Retic 13.9 L PT INR Sodium Potassium Chloride Carbon Dioxide Anion Gap BUN Creatinine Estimated GFR Random Glucose Calcium Iron TIBC % Saturation Ferritin Total Bilirubin Direct Bilirubin Indirect Bilirubin AST ALT Alkaline Phosphatase Total Protein Albumin Vitamin B12 Less than 60 L Methylmalonic Acid Folate Greater than 20.0 H Parietal Cell IgG Ab Intrins Factor Block Ab Blood Type Antibody Screen MTS Gel Crossmatch 08/12/18 08/12/18 08/12/18 16:05 16:05 16:05 WBC 3.3 L RBC 1.89 L Hgb 7.9 L Hct 23.3 L MCV 123.1 H MCH 41.7 H MCHC 33.9 RDW 19.5 H Plt Count 99 L D MPV 9.7 Prelim Diff (Auto) Slide review pending Neut % (Auto) 36.1 Lymph % (Auto) 61.3 H [place] % (Auto) 1.4 Eos % (Auto) 0.7 Baso % (Auto) 0.5 Neut # (Auto) 1.2 L Lymph # (Auto) 2.0 [place] # (Auto) 0.0 Eos # (Auto) 0.0 Baso # (Auto) 0.0 WBC Differential . Diff Scan Auto diff confirmed Seg Neuts % (Manual) Lymphocytes % (Manual) Monocytes % (Manual) Eosinophils % (Manual) Abs Neuts (Manual) Differential Comment . Platelet Estimate Low L Platelet Morphology Normal Acanthocytes (Spur) 1+ H Keratocytes Smear Path Review Retic Count Absolute Retic PT INR Sodium 141 Potassium 3.9 Chloride 111 H Carbon Dioxide 18.7 L Anion Gap 11 BUN 22 H Creatinine 0.96 Estimated GFR Greater than 89 Random Glucose 74 Calcium 8.1 L Iron 201 H TIBC 231 L % Saturation 87.0 H Ferritin 217 Total Bilirubin Direct Bilirubin Indirect Bilirubin AST ALT Alkaline Phosphatase Total Protein Albumin Vitamin B12 Methylmalonic Acid Folate Parietal Cell IgG Ab Intrins Factor Block Ab Blood Type Antibody Screen MTS Gel Crossmatch Discharge Plan - Discharge Disposition Patient Disposition: 07 Against Medical Advice - Discharge Condition Condition: Stable - Discharge Order Discharge Orders: AMA Discharge (Routine); Ordered 08/13/18 Ordered By: Graeme Condon Discharge Order (Routine); Ordered 08/13/18 Ordered By: Graeme Condon - Discharge Details Anticipated Discharge Date: 08/13/18 Discharge Comment: LEFT AMA - Physicians Team Primary Care Provider: Primary Care Angi,No Attending Provider: Graeme Condon Other Providers: Charisse Ornelas MD ; Rusty Lubin MD
[2018-08-13] MEDS ORDERED: PEG 3350/E-Lyte Soln 4000 ML Bottle PO ONE (16:00)
== END 2018-08-13 15:17 | disposition left against medical advice (07) ==
LOC: NEPD 13:26 → NEDA 18:31 → N06 21:07 → NEDA 21:11
PROVIDERS: ADMIT Hospitalist; ATTEND Hospitalist
DX: K92.2 Gastrointestinal hemorrhage, unspecified; D61.818 Other pancytopenia; D75.89 Other specified diseases of blood and blood-forming organs; Z90.49 Acquired absence of other specified parts of digestive tract; F12.10 Cannabis abuse, uncomplicated; F17.210 Nicotine dependence, cigarettes, uncomplicated; K64.9 Unspecified hemorrhoids; E53.8 Deficiency of other specified B group vitamins